=== PATIENT | male | born 1955 | race Caucasian/White ===

== ENCOUNTER 2016-12-01 10:29 | Day surgery (SDC) | payer OTHER ==
[2016-12-01] MEDS ORDERED: LR 1,000 ML IV ONE (10:57)
[2016-12-01] MEDS ORDERED: ROPIVACAINE HCL 20 MG/10 ML INJ EP ONE (11:16)
[2016-12-01] MEDS ORDERED: BACITRACIN 50,000 UNITS/10 ML SYR IRR ONE (11:16)
[2016-12-01] MEDS ORDERED: LIDOCAINE 1% 300 MG/30 ML SDV ONE (11:16)
[2016-12-01] MEDS ORDERED: fentaNYL 100 MCG/2 ML INJ ONE (11:47)
[2016-12-01] MEDS ORDERED: PROPOFOL 200 MG/20 ML VIAL ONE (11:47)
--- NOTE | 2016-12-01 22:12 | GOP ---
[f rep st] OPERATIVE REPORT DATE OF OPERATION: 12/01/2016 SURGEON: Doreen Santacruz DPM ANESTHESIA: MAC. ANESTHESIOLOGIST: I think Demetrio is his first name, I am not sure of his last name. 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 PREOPERATIVE DIAGNOSIS: Irritation deep hardware left foot. POSTOPERATIVE DIAGNOSIS: Irritation deep hardware left foot. PROCEDURE PERFORMED: Performed removal of deep hardware, including 6 screws and plate left foot. FINDINGS: Mimimal soft tissue coverage of the plate. Loosening hardware. ESTIMATED BLOOD LOSS: Less than 3 cc. INDICATIONS: The patient reported discomfort, pain left foot. X-rays demonstrate fracture well-healed, hardware protruding laterally on the 5th metatarsal. Suspecting hardware loosening. At this time, the patient elects to proceed with surgery to remove the hardware. DESCRIPTION OF PROCEDURE: The patient was brought into the operating room, placed on the operating table in the supine position. Intravenous sedation administered by the anesthesiologist. A peripheral nerve block was obtained utilizing a total of 15 cc of 1:1 mix of 0.2% ropivacaine, 1% lidocaine plain. The lower extremity was prepped and draped in the usual sterile manner. After the limb had been elevated it was exsanguinated with an Esmarch bandage and ankle tourniquet inflated to 220 mmHg and the procedure was begun. Attention was directed toward the dorsal lateral aspect of the 5th metatarsal along previous incision line. Incision created. Incision carefully deepened and immediately below the skin and there was very little soft tissue padding and coverage, plate was noted. The plate and 6 screws were removed without complication, the screws were noted to be loose, with subtle synovitic tissue noted around the plate. As well as scar tissue around the plate. Wound was copiously irrigated with bacitracin irrigation solution. Deep closure was difficult since there was no periosteal or capsular tissue to reapproximate therefore, straight to subcutaneous closure with 4-0 Monocryl. Skin was closed with 4-0 Prolene in horizontal mattress and simple interrupted suture manner. Intraoperatively the tourniquet had been released and a normal hyperemic response was noted to all digits. Bleeding controlled. Dressings include Xeroform, 4x4s, fluffs, Jayne reinforced with tape and an Jose Cruz bandage. The patient tolerated the procedure and anesthesia very well and left the operating room, vital signs stable and vascular status intact to all digits. There were no intraoperative complications. PATHOLOGY: No specimen sent. FOLLOW UP: To follow up at our office in 2 days for wound check. PROGNOSIS: Good. /[id number]/MODL MTDD
== END 2016-12-01 14:50 | disposition home or self-care (01) ==
LOC: FSGY 10:29
PROVIDERS: ATTEND Podiatrist
PROC: 0QPP04Z Removal of Internal Fixation Device from Left Metatarsal, Open Approach (ICD-10-PCS; principal; 2016-12-01 12:00)
DX: T84.293A Other mechanical complication of internal fixation device of bones of foot and toes, initial encounter (principal); T84.84XA Pain due to internal orthopedic prosthetic devices, implants and grafts, initial encounter; M79.672 Pain in left foot
CPT/HCPCS: J0690; J2704; J2795; J3010